=== PATIENT | female | born 1955 | race Caucasian/White ===

== ENCOUNTER 2023-08-28 09:56 | Emergency (ER) | payer OTHER ==
[~2023-08-28] VITALS: Ht 167.6 cm; Wt 52.6 kg
[2023-08-28 13:48] LABS: HEMATOCRIT 41.7 % (36.0-45.00); MEAN CELL VOLUME 87.6 fL (80.00-100.00); MEAN CORPUSCULAR HEMOGLOBIN 29.4 pg (27.00-32.0); MEAN CORPUSCULAR HGB CONC 33.6 g/dl (32.0-36.0); PLATELET COUNT 294 K/uL (150-450); RED BLOOD COUNT 4.76 M/uL (4.00-6.00); RED CELL DISTRIBUTION WIDTH 13.3 % (11.5-14.5)
[2023-08-28 14:19] LABS: INR 0.97; PARTIAL THROMBOPLASTIN TIME 29.5 SECONDS (22.0-34.0); PROTHROMBIN TIME 10.2 SECONDS (9.0-11.5)
[2023-08-28 14:25] LABS: ALBUMIN 4.1 gm/dL (3.4-5.0); BILIRUBIN TOTAL 0.57 mg/dL (0.3-1.2); CALCIUM 9.5 mg/dL (8.5-10.1); CREATININE SERUM 0.51 mg/dL (0.55-1.02); GFR 120.65; GLOBULINA 4.3 G/DL (2.4-3.5); POTASSIUM 3.48 mEq/L (3.5-5.1); TOTAL PROTEIN 8.4 gm/dL (6.4-8.2)
== END 2023-08-28 16:13 | disposition home or self-care (01) ==
LOC: ER 09:56
PROVIDERS: General Practice
DX: R05.9 Cough, unspecified (principal); I10 Essential (primary) hypertension; Z20.822 Contact with and (suspected) exposure to COVID-19